=== PATIENT | female | born 1965 | race Caucasian/White ===

== ENCOUNTER 2019-12-19 16:55 | Emergency (ER) | payer OTHER ==
[~2019-12-19] VITALS: Ht 144.8 cm; Wt 59.0 kg
[2019-12-19] MEDS ORDERED: SERTRALINE HCL25 MG PO (17:23)
[2019-12-19] MEDS ORDERED: VALSARTAN40 MG PO (17:23)
[2019-12-19 19:36] VITALS: BP 134/57
== END 2019-12-19 19:37 | disposition home or self-care (01) ==
LOC: ER 16:55
DX: U07.1 COVID-19 (principal); R19.7 Diarrhea, unspecified; I10 Essential (primary) hypertension; F41.9 Anxiety disorder, unspecified; Z79.899 Other long term (current) drug therapy; Z88.8 Allergy status to other drugs, medicaments and biological substances